=== PATIENT | male | born 2000 | race African-American/Black ===

== ENCOUNTER 2021-01-22 15:13 | Emergency (ER) | payer SELFPAY ==
[~2021-01-22] VITALS: Ht 177.8 cm; Wt 74.5 kg
[~2021-01-22 15:13] MED LIST: ALBUTEROL0.09 MG/A4 IH
[2021-01-22 15:38] VITALS: TEMP 98.5
[2021-01-22] MEDS ORDERED: MEDROL 4MG DOSPA4 MG PO (17:03)
[2021-01-22 17:14] VITALS: BP 116/73; PULSE 62
== END 2021-01-22 17:14 | disposition home or self-care (01) ==
LOC: COL.ER 15:13
DX: R20.0 Anesthesia of skin (principal)